=== PATIENT | male | born 1960 | race African-American/Black ===

== ENCOUNTER 2019-03-22 14:43 | Inpatient (IN) | payer MEDICARE, OTHER ==
[~2019-03-22] VITALS: Ht 175.3 cm; Wt 66.2 kg
[2019-03-22 16:00] VITALS: BP 131/72
[2019-03-22] MEDS ORDERED: DIVA-78 PO (16:30)
[2019-03-22] MEDS ORDERED: LAMO100T17 PO (16:30)
[2019-03-22] MEDS ORDERED: CEPH-570 PO (16:30)
--- NOTE | 2019-03-22 16:30 | NUR ---
Received patient direct admit from [facility]. Patient in awake, A/Ox2, to person and time, forgetful, able to make needs known. Able to use his walker upon transfer from [facility] to bed with assistance. Not in any form of distress. No SOB, tolerating room air at 100% saturation. Denies pain or discomfort. Per report given by ZAC Brown from [facility], patient diagnosis is Suicidal Ideation. However, patient denies SI/HI upon initial assessment. Patient stated that he is just upset with his sister. Situated and orient patient in the room, and instructed to call for assistance. Skin assessment done, has minor scabs on right ruth and left knee, photos taken and placed it on the chart. Belongings and contraband checked by SORIN James. Safety measures in place. Bed in low/locked psoiton, siderails upx2, semifowlers, bed alarm on. will continue to monitor accordingly.
[2019-03-22 16:45] VITALS: BP 131/72
[2019-03-22] MEDS ORDERED: LORAZEPAM 0.5 MG TABLET PO PRN (18:00)
[2019-03-22] MEDS ORDERED: MAGNESIUM HYDROXIDE 30 ML UDC PO PRN (18:00)
[2019-03-22] MEDS ORDERED: MAG HYDROX/AL HYDROX/SIMETH 30 ML UDC PO PRN (18:00)
[2019-03-22] MEDS ORDERED: BLOOD SUGAR DIAGNOSTIC 1 EACH STRIP IN ONE (18:00)
[2019-03-22] MEDS ORDERED: TEMAZEPAM 7.5 MG CAPSULE PO PRN (18:00)
[2019-03-22] MEDS ORDERED: ACETAMINOPHEN 325 MG TABLET PO PRN (18:00)
[2019-03-22 20:15] VITALS: BP 125/66
--- NOTE | 2019-03-23 06:24 | NUR ---
GPS RN NOTE: FABY ESPARZA NOTIFIED TO RECONCILE THE MEDICATION. WILL CONTINUE TO MONITOR Q15 MINS FOR SAFETY
[2019-03-23 07:15] LABS: ALBUMIN 2.9 g/dL (3.4-5.0); BILIRUBIN,TOTAL 0.4 mg/dL (0.2-1.0); CALCIUM, SERUM 8.6 mg/dL (8.5-10.1); TOTAL PROTEIN, SERUM 6.2 g/dL (6.4-8.2)
[2019-03-23 07:20] LABS: CHOLESTEROL 143 mg/dL (<200); HDL CHOLESTEROL 70 mg/dL (40-60); LDL 55 mg/dL (0-99); TRIGLYCERIDES 46 mg/dL (30-150)
[2019-03-23 08:00] VITALS: BP 106/57
[2019-03-23] MEDS: CEPHALEXIN MONOHYDRATE 500 MG CAPSULE PO SCH ×3 (08:24→16:32)
[2019-03-23] MEDS: DIVALPROEX SODIUM 500 MG TABLET.DR PO SCH ×2 (08:24→21:17)
[2019-03-23] MEDS: SERTRALINE HCL 25 MG TABLET PO SCH (13:48)
--- NOTE | 2019-03-23 15:40 | NUR ---
GROUP NOTE: SW assessed pts ability to participate in group therapy nn this present day discussing "discharge planning." Pt unable to participate due to Developmental Delay pts thought process is tangential/ incoherent with mumbled speech.
[2019-03-23 16:00] VITALS: BP 107/56
[2019-03-23 20:31] VITALS: BP 131/62
[2019-03-24 08:00] VITALS: BP 118/65
[2019-03-24] MEDS: LamoTRIgine 100 MG TABLET PO SCH ×2 (08:37→20:27)
[2019-03-24] MEDS: DIVALPROEX SODIUM 500 MG TABLET.DR PO SCH ×2 (08:37→20:27)
[2019-03-24] MEDS: CEPHALEXIN MONOHYDRATE 500 MG CAPSULE PO SCH ×3 (08:37→16:50)
--- NOTE | 2019-03-24 10:30 | NUR ---
Family Contact: ELBA called the pts sister, Marina ([phone]), and informed her that the pt is currently in the hospital on the Geropsych unit and inquired about the discharge plan. Pts sister stated that she would want the pt to return to his home because he is set up with the [facility] and that she wants to set up 24/7 caregiver.
--- NOTE | 2019-03-24 13:07 | NUR ---
Initial Discharge Plan: Pt currently resides in his apartment where he lives alone located at [address] [place] [address], [address], [place] [address]; ([phone]). Per pt, he would like to return to his home. Pts sister, Marina ([phone]), stated that she is currently working with the [facility] and stated that they are working on receiving constant care. SW will work with the pt and the MD regarding appropriate discharge planning. SW will form a safe and proper discharge plan.
[2019-03-24] MEDS: SERTRALINE HCL 25 MG TABLET PO SCH ×2 (13:27→16:50)
[2019-03-24 16:00] VITALS: BP 107/61
--- NOTE | 2019-03-24 16:18 | NUR ---
Group Note: SW encouraged pt to attend group therapy on 03/24/19 at 12pm discussing discharge planning. Pt is developmentally delayed, displays pressured/incoherent/tangential speech patterns and did not appear to be appropriate for group. ELBA informed him that he will be returning to his home and that he will have 24/7 caregivers for safety purposes.
[2019-03-24 20:00] VITALS: BP 122/52
[2019-03-25 08:00] VITALS: BP 113/68
[2019-03-25 08:19] LABS: BASOPHILS % (AUTO) 0.2 % (0.0-2.0); EOSINOPHILS % (AUTO) 0.4 % (0.0-6.0); HEMATOCRIT 35 % (39-51); HEMOGLOBIN 11.2 g/dL (13.5-17.5); LYMPHOCYTES # (AUTO) 1.8 /CMM (0.8-4.8); LYMPHOCYTES % (AUTO) 21.4 % (20.0-44.0); MEAN CORPUSCULAR HGB CONC 32 g/dl (31.0-36.0); MEAN CORPUSCULAR VOLUME 78 fL (80-96); MONOCYTES # (AUTO) 0.8 /CMM (0.1-1.30); MONOCYTES % (AUTO) 9.2 % (2.0-12.0); NEUTROPHILS # (AUTO) 5.8 /CMM (1.8-8.9); NEUTROPHILS % (AUTO) 68.8 % (43.0-81.0); PLATELET COUNT (AUTO) 177 /CMM (150-450); RED BLOOD CELL COUNT(AUTO) 4.46 MIL/uL (4.5-6.0); WHITE BLOOD COUNT (AUTO) 8.5 K/uL (4.3-11.0)
--- NOTE | 2019-03-25 09:10 | NUR ---
ENDORSED PT. TO CARE UNDER ZAC GORMAN.
[2019-03-25] MEDS: CEPHALEXIN MONOHYDRATE 500 MG CAPSULE PO SCH ×3 (09:23→17:39)
[2019-03-25] MEDS: LamoTRIgine 100 MG TABLET PO SCH ×2 (09:23→21:10)
--- NOTE | 2019-03-25 11:30 | NUR ---
RECEIVED PT. BACK UNDER MY CARE.
[2019-03-25] MEDS: DIVALPROEX SODIUM 500 MG TABLET.DR PO SCH ×2 (11:38→21:10)
[2019-03-25] MEDS: SERTRALINE HCL 25 MG TABLET PO SCH ×2 (14:01→17:39)
[2019-03-25 16:00] VITALS: BP 114/62
--- NOTE | 2019-03-25 16:20 | NUR ---
GROUP NOTE: SW assessed pts ability to participate in group therapy nn this present day discussing "reality testing." Pt unable to participate due to Developmental Delay pts thought process is tangential/ incoherent with mumbled speech and unable to engage in reality based conversation.
--- NOTE | 2019-03-25 16:58 | NUR ---
NO CHANGE IN STATUS.
[2019-03-25 20:29] VITALS: BP 111/57
[2019-03-26 08:00] VITALS: BP 119/61
[2019-03-26] MEDS: DIVALPROEX SODIUM 500 MG TABLET.DR PO SCH ×2 (10:16→20:32)
[2019-03-26] MEDS: CEPHALEXIN MONOHYDRATE 500 MG CAPSULE PO SCH ×3 (10:17→17:22)
[2019-03-26] MEDS: LamoTRIgine 100 MG TABLET PO SCH ×2 (10:17→20:32)
--- NOTE | 2019-03-26 10:50 | NUR ---
Family Contact: ELBA called the pts sister, Marina ([phone]), and discussed the pts discharge plan to return home with caregivers. She stated that she already has a caregiving service ready to go and that she would like to be updated once there is a discharge date. ELBA stated that she would keep her updated.
--- NOTE | 2019-03-26 10:59 | NUR ---
Family Contact: Pts sister, Marina ([phone]), called the SW back and inquired about whether or not home health would be an option for the pt. SW stated that the MD can put an order in at the time of discharge.
[2019-03-26] MEDS: SERTRALINE HCL 25 MG TABLET PO SCH ×2 (13:18→17:22)
[2019-03-26 16:00] VITALS: BP 115/59
--- NOTE | 2019-03-26 16:13 | NUR ---
[facility] Contact: ELBA received a call from Terese ([phone]) who stated that for the pt to receive additional hours of caregiving the SW would have to send her a letter from the to .
--- NOTE | 2019-03-26 16:15 | NUR ---
Group Note: SW encouraged pt to attend group therapy on 03/26/19 at 2pm discussing social supports. Pt is developmentally delayed, displays pressured/incoherent/tangential speech patterns and did not appear to be appropriate for group. Pt spoke to the SW about his sister and how she is always calling him and helping him.
[2019-03-26 20:07] VITALS: BP 110/58
[2019-03-27 08:00] VITALS: BP 111/58
[2019-03-27] MEDS: CEPHALEXIN MONOHYDRATE 500 MG CAPSULE PO SCH ×3 (08:16→17:15)
[2019-03-27] MEDS: DIVALPROEX SODIUM 500 MG TABLET.DR PO SCH ×2 (08:16→21:08)
[2019-03-27] MEDS: LamoTRIgine 100 MG TABLET PO SCH ×2 (08:16→21:08)
--- NOTE | 2019-03-27 09:02 | NUR ---
Probable Cause (PC) Hearing Notification: ELBA called the pts sister, Marina ([phone]), and left a message on her voicemail explaining the PC hearing and what the possible results are.
[2019-03-27] MEDS: SERTRALINE HCL 25 MG TABLET PO SCH ×2 (12:34→17:15)
[2019-03-27 16:00] VITALS: BP 110/58
[2019-03-27 20:38] VITALS: BP 112/69
[2019-03-28 08:00] VITALS: BP 114/56
[2019-03-28] MEDS: DIVALPROEX SODIUM 500 MG TABLET.DR PO SCH ×2 (08:24→21:18)
[2019-03-28] MEDS: CEPHALEXIN MONOHYDRATE 500 MG CAPSULE PO SCH ×3 (08:24→17:02)
[2019-03-28] MEDS: LamoTRIgine 100 MG TABLET PO SCH ×2 (08:24→21:18)
[2019-03-28] MEDS: SERTRALINE HCL 25 MG TABLET PO SCH ×2 (12:03→17:02)
[2019-03-28] MEDS ORDERED: SERTRALINE HCL 25 MG TABLET PO SCH ×2 (13:00→13:30)
[2019-03-28 16:00] VITALS: BP 108/62
[2019-03-28 20:00] VITALS: BP 123/67
[2019-03-28 20:13] VITALS: BP 123/67
[2019-03-29 08:00] VITALS: BP 110/59
[2019-03-29] MEDS: DIVALPROEX SODIUM 500 MG TABLET.DR PO SCH ×2 (08:04→20:24)
[2019-03-29] MEDS: CEPHALEXIN MONOHYDRATE 500 MG CAPSULE PO SCH ×3 (08:04→17:26)
[2019-03-29] MEDS: LamoTRIgine 100 MG TABLET PO SCH ×2 (08:05→20:24)
[2019-03-29] MEDS: SERTRALINE HCL 25 MG TABLET PO SCH ×2 (12:45→17:26)
[2019-03-29 16:00] VITALS: BP 113/63
[2019-03-29 20:32] VITALS: BP 135/90
[2019-03-30 08:00] VITALS: BP 119/51
[2019-03-30] MEDS: DIVALPROEX SODIUM 500 MG TABLET.DR PO SCH ×2 (08:48→21:38)
[2019-03-30] MEDS: LamoTRIgine 100 MG TABLET PO SCH ×2 (08:48→21:38)
--- NOTE | 2019-03-30 12:10 | NUR ---
Family Contact: Pts sister, Marina ([phone]), called the SW and the SW informed her that the letter is being signed by the MD and that the pts discharge will either be for today or the following day.
[2019-03-30] MEDS: SERTRALINE HCL 25 MG TABLET PO SCH ×2 (12:17→17:20)
--- NOTE | 2019-03-30 13:34 | NUR ---
[facility] Contact: ELBA called Terese ([phone]) but her mailbox was full and the SW was not able to inform her that the email address she provided was not accurate.
--- NOTE | 2019-03-30 13:37 | NUR ---
Family Contact: SW called the pts sister, Marina ([phone]), and informed her that the pt may be discharged tomorrow and that the SW is attempting to send the letter to Terese but her email is inaccurate and her voicemail is full so the SW sent it to the pts sister as requested.
--- NOTE | 2019-03-30 15:45 | NUR ---
GROUP NOTE: SW encouraged pt to attend group on this present day discussing "discharge planning." Pt was asleep and not easily aroused.
[2019-03-30 15:50] VITALS: BP 112/63
[2019-03-30 20:13] VITALS: BP 121/66
[2019-03-31 08:00] VITALS: BP 109/57
[2019-03-31] MEDS: LamoTRIgine 100 MG TABLET PO SCH ×2 (08:26→20:44)
[2019-03-31] MEDS: DIVALPROEX SODIUM 500 MG TABLET.DR PO SCH ×2 (08:26→20:44)
--- NOTE | 2019-03-31 11:59 | NUR ---
Family Contact: ELBA called the pts sister, Marina ([phone]), and she stated that she would like the SW to request to the MD that the pt stay an additional day at the hospital because the [facility] needs one more day to set up a caregiver. ELBA stated that she will speak to the MD and call her back as soon as she can.
[2019-03-31] MEDS: SERTRALINE HCL 25 MG TABLET PO SCH ×2 (12:14→16:15)
--- NOTE | 2019-03-31 13:10 | NUR ---
Family Contact: ELBA called the pts sister, Marina ([phone]), and informed her that the MD is willing to postpone the discharge to the following day when the pt will have a 24 hour caregiver set up.
--- NOTE | 2019-03-31 13:13 | NUR ---
Individual Intervention: ELBA informed the pt that he will be discharged back to his home the following day due to the need for a 24/7 caregiver to be set up.
--- NOTE | 2019-03-31 13:38 | NUR ---
[facility] Contact: ELBA called Terese ([phone]) but her mailbox was full and the SW wanted to speak to her about the pts aftercare providers.
[2019-03-31 16:00] VITALS: BP 113/59
[2019-03-31 20:26] VITALS: BP 118/75
[2019-04-01 08:00] VITALS: BP 115/65
[2019-04-01] MEDS: LamoTRIgine 100 MG TABLET PO SCH (08:27)
[2019-04-01] MEDS: DIVALPROEX SODIUM 500 MG TABLET.DR PO SCH (08:27)
--- NOTE | 2019-04-01 10:55 | NUR ---
Family Contact: SW called the pts sister, Marina ([phone]), and she stated that she will come slate picker the pt around 2pm.
[2019-04-01] MEDS: SERTRALINE HCL 25 MG TABLET PO SCH (12:54)
--- NOTE | 2019-04-01 14:55 | NUR ---
Discharge Note: Pt was discharged back to his home located at [facility], [address], [place] [address]; ([phone]). Pt was picked up by his sister, Marina ([phone]), at 2pm. Pts [facility] manager, Terese ([phone]), was also informed. Upon discharge, the pt appeared to be in a euthymic mood and presented with a calm affect. Pt denied both suicidal and homicidal ideation as well as auditory and visual hallucinations. Pt was provided with a / caregiver through the [facility]. Pt will be under the care of his psychiatrist, Dr. Naima Petit, located at [address] [place] [address]; and his plaster machine tender, Dr. Raghav Healy, located at [address], [place] [address]; .
--- NOTE | 2019-04-01 15:40 | NUR ---
NURSING DISCHARGE NOTE: PATIENT DISCHARGED TODAY HOME LOCATED AT [address], [place] [address]. PT IS A&OX3, CALM, COOPERATIVE, PLEASANT, PATIENT IS IN STABLE CONDITION. VSS. NO ACUTE DISTRESS NOTED. NO COMPLAINTS OF PAIN OR ANY DISCOMFORT. COMPLIANT WITH MEDICATION MANAGEMENT. COOPERATIVE WITH PLAN OF CARE. PSYCHIATRIC TREATMENT PLANS MET. MEDICAL TREATMENT PLANS DEFERRED FOR CONTINUAL MONITORING. DENIES SI/HI/AVH AT THE TIME OF DISCHARGE. PT REFUSED SKIN ASSESSMENT AND PICTURES TO BE TAKEN. EDUCATED PATIENT ABOUT AFTERCARE WITH COPY PROVIDED. PT WAS COOPERATIVE WITH DISCHARGE PROCESS AND HAS SIGNED ALL PAPERWORK. RETURNED PERSONAL BELONGINGS TO PATIENT. MEDICATIONS RECONCILED WITH ALONG WITH PSYCHIATRIC DISCHARGE ORDERS. DISCHARGE PAPERWORK SIGNED. DISCHARGE ORDER WAS GIVEN BY DR. NEWELL WITH PRESCRIPTIONS WELL. PT HAS BEEN MEDICALLY CLEARED FOR DISCHARGE BY DR. BLAYNE BORGES. ALL PRESCRIPTIONS WERE CALLED INTO [facility] AT [phone]. FOR FOLLOW UP WITH PSYCHIATRIST AND CAN CUTTER WITHIN 1 WEEK. [facility] AT 1540 ACCOMPANIED BY HIS SISTER ADDIS AND 1 DATABASE SUPPORT TO PRIVATE VEHICLE.
[2019-04-01 16:00] VITALS: BP 111/59
--- NOTE | 2019-04-03 14:53 | NUR ---
PCP Fax: ELBA faxed medical records to PCP Dr Boyce to the fax number: [phone].
== END 2019-04-01 15:40 | disposition home or self-care (01) | DRG 885 ==
LOC: GPS 16:19
PROVIDERS: ADMIT Psychiatry & Neurology Psychosomatic Medicine; ATTEND Student in an Organized Health Care Education/Training Program
DX: F33.2 Major depressive disorder, recurrent severe without psychotic features (principal); E44.0 Moderate protein-calorie malnutrition; F23 Brief psychotic disorder; R56.9 Unspecified convulsions; Z68.21 Body mass index [BMI] 21.0-21.9, adult; F09 Unspecified mental disorder due to known physiological condition; F19.10 Other psychoactive substance abuse, uncomplicated; E88.09 Other disorders of plasma-protein metabolism, not elsewhere classified; F17.210 Nicotine dependence, cigarettes, uncomplicated; Z87.820 Personal history of traumatic brain injury
CPT/HCPCS: 36415; 80053-TC; 80061-TC; 80164-TC; 82962-TC; 84443-TC; 85025-TC; 87081-TC; 97116-TC; 97530-TC